=== PATIENT | male | born 1970 | race Caucasian/White ===

== ENCOUNTER 2017-10-31 18:50 | Emergency (ER) | payer MEDICAID ==
[2017-10-31 18:50] VITALS: BMI 27.3
[2017-10-31 19:34] VITALS: PULSE 61; RESP 18; TEMP 97.9; O2SAT 99
--- NOTE | 2017-10-31 21:00 | ED PDOC ---
Arrival/HPI - General Historian: Patient <Karen Colmenares - Last Filed: 10/31/17 21:33> <Yoandy Ashton - Last Filed: 10/31/17 22:51> - General Chief Complaint: Lower Extremity Problem/Injury Time Seen by Provider: 10/31/17 19:56 - History of Present Illness Narrative History of Present Illness (Text): 10/31/17 20:56 47-year-old male presents today with left knee that started today. Patient states he was walking and suddenly developed pain in the anterior aspect of the knee. He denies numbness weakness or tingling in the extremity. He denies calf pain. Patient states he feels like he is having difficulty walking on the leg due to pain. Patient denies any recent trauma or injury. He denies any prior injury in the knees. He denies any swelling of the knee. He denies thigh pain. Patient denies fevers or chills. No other complaints patient states he did not take any medications for pain. (Karen Colmenares) Past Medical History - Provider Review Nursing Documentation Reviewed: Yes - Travel History Have you recently traveled outside [place] w/in the past 3 mons?: No - Infectious Disease Hx of Infectious Diseases: None - Cardiac Hx Hypertension: Yes - Psychiatric Hx Depression: No Hx Emotional Abuse: No Hx Physical Abuse: No Hx Substance Use: No - Suicidal Assessment Feels Threatened In Home Enviroment: No <Karen Colmenares - Last Filed: 10/31/17 21:33> Family/Social History - Physician Review Nursing Documentation Reviewed: Yes Family/Social History: Unknown Family HX Smoking Status: Never Smoked Hx Alcohol Use: Yes Hx Substance Use: No <Karen Colmenares - Last Filed: 10/31/17 21:33> Allergies/Home Meds <Karen Colmenares - Last Filed: 10/31/17 21:33> <Yoandy Ashton - Last Filed: 10/31/17 22:51> Allergies/Adverse Reactions: Allergies normal saline IV Adverse Reaction (Uncoded 10/31/17 19:34) COUGH Review of Systems - Review of Systems Constitutional: absent: Fatigue, Fevers Respiratory: absent: SOB, Cough Cardiovascular: absent: Chest Pain, Palpitations Gastrointestinal: absent: Abdominal Pain, Nausea, Vomiting Genitourinary Male: absent: Dysuria, Frequency Musculoskeletal: Arthralgias (left knee pain). absent: Back Pain, Neck Pain Skin: absent: Rash, Pruritis Neurological: absent: Headache, Dizziness Psychiatric: absent: Anxiety, Depression <Karen Colmenares - Last Filed: 10/31/17 21:33> Physical Exam Vital Signs Reviewed: Yes Temperature: Afebrile Blood Pressure: Normal Pulse: Regular Respiratory Rate: Normal Appearance: Positive for: Well-Appearing, Non-Toxic, Comfortable Pain Distress: None Mental Status: Positive for: Alert and Oriented X 3 - Systems Exam Head: Present: Atraumatic Mouth: Present: Moist Mucous Membranes Respiratory/Chest: Present: Clear to Auscultation Cardiovascular: Present: Regular Rate and Rhythm Back: Present: Normal Inspection Lower Extremity: Present: NORMAL PULSES, Normal ROM, Tenderness (left knee; + ttp over anterior aspect of knee; full rom knee with pain on full extension. no erythema; no edema, no ecchymosis. no calf tendernes. sensation and distal pulses intact. cap refill <2. ), Neurovascularly Intact, Capillary Refill < 2 s. No: CALF TENDERNESS, Swelling, Erythema, Deformity, Temperature Abnormalties Neurological: Present: GCS=15, Speech Normal Skin: Present: Warm, Dry, Normal Color. No: Rashes Psychiatric: Present: Alert, Oriented x 3 <Karen Colmenares - Last Filed: 10/31/17 21:33> Vital Signs Temp Pulse Resp BP Pulse Ox 10/31/17 19:32 97.9 F 61 18 115/69 99 Medical Decision Making Reassessment Condition: Re-examined, Improved <Karen Colmenares - Last Filed: 10/31/17 21:33> <Yoandy Ashton - Last Filed: 10/31/17 22:51> ED Course and Treatment: 10/31/17 20:59 Patient nontoxic well-appearing in no distress with stable vital signs X-rays of the knee: No fracture Toradol IM Patient placed in knee immobilizer. patient refused Crutches for ambulation. states he has crutches at [facility]. pt reassessment; pt feeling better with mediations; pt able to fully range knee. muscle strenght equal bilaterally. I discussed all results with patient advised to followup with the orthopedist for the next 2 days. Return if symptoms worsen persist or new symptoms develop i advised the patient that although the xrays show no fracture; there is still a possibility for ligamentous or tendon injury the patient must see the orthopedist for further evaluation. Patient verbalizes understanding of discharge instructions and need for immediate followup. all aspects of this case were discussed the attending of record. Impression: knee pain Motrin every 6 hours as needed for pain Rest, ice, compression, elevation Use crutches for ambulation Followup with the orthopedist within the next 2 days Followup with primary care physician within the next 2 days Return if symptoms worsen persist or if new symptoms develop (Karen Colmenares) - RAD Interpretation Radiology Orders: 10/31/17 19:56 KNEE WITH PATELLA LEFT 3 VIEW [RAD] Stat - Medication Orders Current Medication Orders: Discontinued Medications Ketorolac Tromethamine (Toradol) 60 mg IM STAT STA Stop: 10/31/17 19:57 Last Admin: 10/31/17 21:17 Dose: 60 mg MAR Pain Assessment Document 10/31/17 21:17 (Rec: 10/31/17 21:18 [id number]) Pain Reassessment Is this a pain reassessment? Yes Location Left, Right or Bilateral Left Pain Location Body Site Knee IM Administration Charges Document 10/31/17 21:17 (Rec: 10/31/17 21:18 [facility] [id number]) Charges for Administration # of IM Administrations 1 - PA / WORSHIP LEADER / Resident Statement MD/DO has reviewed & agrees with the documentation as recorded. <Yoandy Ashton - Last Filed: 10/31/17 22:51> Disposition/Present on Arrival - Present on Arrival Any Indicators Present on Arrival: No History of DVT/PE: No History of Uncontrolled Diabetes: No Urinary Catheter: No History of Decub. Ulcer: No History Surgical Site Infection Following: None - Disposition Have Diagnosis and Disposition been Completed?: Yes Disposition Time: 21:00 Patient Plan: Discharge <Karen Colmenares - Last Filed: 10/31/17 21:33> <Yoandy Ashton - Last Filed: 10/31/17 22:51> - Disposition Diagnosis: Knee pain Disposition: HOME/ ROUTINE Patient Problems: Current Active Problems Problem Status Onset Knee pain Acute Condition: GOOD Discharge Instructions (ExitCare): Knee Pain Additional Instructions: Motrin every 6 hours as needed for pain Rest, ice, compression, elevation Use crutches for ambulation Followup with the orthopedist within the next 2 days Followup with primary care physician within the next 2 days Return if symptoms worsen persist or if new symptoms develop Prescriptions: Ibuprofen [Motrin] 600 mg PO Q6H PRN #20 tab PRN Reason: pain/fever reduction Referrals: Ralf Khanna MD [Primary Care Provider] - Follow up with primary Damion Aguirre III, MD [Medical Doctor] - Follow up with primary [facility] [Outside] - Follow up with primary [facility] [Outside] - Follow up with primary Forms: [employer] (Persian), WORK NOTE
[2017-11-01 02:48] VITALS: BP 112/62
--- NOTE | 2017-11-01 09:12 | RAD ---
Date of service: 10/31/2017 PROCEDURE: Left Knee Radiographs. HISTORY: Pain. COMPARISON: None. FINDINGS: BONES: Normal. No fracture. JOINTS: Normal. No osteoarthritis. JOINT EFFUSION: None. OTHER FINDINGS: The patella is unremarkable IMPRESSION: Normal radiographs of the left knee.
== END 2017-10-31 21:20 | disposition home or self-care (01) ==
LOC: ED 18:50
DX: M25.562 Pain in left knee (principal)
CPT/HCPCS: 73562; 96372; 99284; J1885